=== PATIENT | male | born 1950 | race Caucasian/White ===

== ENCOUNTER 2020-06-01 09:01 | Observation (INO) | payer MEDICARE ==
[~2020-06-01] VITALS: Ht 175.3 cm; Wt 62.1 kg
[2020-06-01] MEDS ORDERED: LORazepam 2 MG/ML, 1ML ONE ×2 (09:24→11:02)
[2020-06-01] MEDS ORDERED: LORazepam 2 MG/ML, 1ML IVPush ONE ×2 (09:30→11:30)
[2020-06-01] MEDS ORDERED: SODIUM CHLORIDE FLUSH 10ML SYR IVF ONE (09:30)
--- NOTE | 2020-06-01 09:38 | NUR ---
PT BIBA FOR FIRST TIME SEIZURE THIS AM OCCURING WHILE PT WAS WALKING OUTSIDE [facility]. PT STATES HE HAS BEEN TRYING TO WEAN SELF OFF OF ETOH, USUAL AMOUNT IS 4 DRINKS PER DAY, CURRENTLY AT 2 DRINKS PER DAY, LAST DRINK YESTERDAY PM. PT DISORIENTED ON SCENE PER EMS, NOW A&OX4. FSBS 146 HAND LAMINATOR PER EMS. REPORT TAKEN ON ARRIVAL FROM EMS. EKG TAKEN ON ARRIVAL BY EDT. SEIZURE PADS IN PLACE, ALL MONITORS IN PLACE. PT DENIES HEADACHE, DENIES NECK PAIN, DENIES ANY PAIN. PT REPORTS HE ALSO HAS RECENTLY RAN OUT OF HIS ATIVAN PRESCRIPTION, HE HAS BEEN TAKING ATIVAN TID FOR YEARS, LAST DOSE WAS YESTERDAY AT 4AM. PT TAKES ELIQUIS FOR HISTORY PE, STATES HIS LAST DOSE WAS YESTERDAY PM. PT IS NEUROLOGICALLY INTACT, 4/5 STRENGTH TO ALL EXTREMITIES, PUPILS EQUAL, ROUND AND REACTIVE. MILD TREMOR NOTED WHEN ARMS ARE EXTENDED. FACE SYMMETRICAL, GRASP EQUAL BILATERALLY. PT INSTRUCTED TO PROVIDE URINE FOR DRUG SCREEN, PT VOIDED IN URINAL BUT SPILLED URINE ON SELF. PT INSTRUCTED TO CALL RN WHEN READY TO REATTEMPT. CALL LIGHT IN REACH. PT EXAMINED BY YASIR ROUSE, RANJIT OLIVEIRA AT BEDSIDE AT THIS TIME.
[2020-06-01 10:28] LABS: ALBUMIN 3.2 g/dL (3.4-5.0); ANION GAP 14 mmol/L (5-15); CHLORIDE 102 mmol/L (98-107)
[2020-06-01 10:32] LABS: ALANINE AMINOTRANSFERASE 197 U/L (12-78); ALKALINE PHOSPHATASE 84 U/L (45-117); BILIRUBIN,TOTAL 1.1 mg/dL (0.2-1.0); CREATININE 1.01 mg/dL (0.7-1.3); TOTAL PROTEIN 6.5 g/dL (6.4-8.2)
[2020-06-01 10:57] LABS: MEAN CORPUSCULAR HGB CONC 33.5 g/dL (33.2-36.2); MEAN CORPUSCULAR VOLUME 116.5 fL (81-97); MEAN PLATELET VOLUME 7.9 fL (7.4-10.4); PLATELET COUNT 159 x10^3/uL (130-400); RED BLOOD COUNT 3.24 x10^6/uL (4.38-5.82); RED CELL DISTRIBUTION WIDTH 14.7 % (9.4-14.8)
--- NOTE | 2020-06-01 11:09 | NUR ---
PT REMAINS TREMULOUS, A&OX4. SECOND DOSE ATIVAN ORDERED AND ADMIN. EDPA PADMA AT BEDSIDE TO REASSESS PT.
[2020-06-01 11:18] LABS: BASOPHILS # (AUTO) 0.01 x10^3/uL (0-0.1); BASOPHILS % (AUTO) 0 % (0-1); EOSINOPHILS # (AUTO) 0.01 x10^3/uL (0-0.4); EOSINOPHILS % (AUTO) 0 % (1-7); LYMPHOCYTES # (AUTO) 0.65 x10^3/uL (1-3.4); LYMPHOCYTES % (AUTO) 12 % (22-44); MD SCAN; MONOCYTES # (AUTO) 0.65 x10^3/uL (0.2-0.8); MONOCYTES % (AUTO) 12 % (2-9); NEUTROPHILS # (AUTO) 4.08 x10^3/uL (1.8-6.8); NEUTROPHILS % (AUTO) 76 % (42-75)
[2020-06-01] MEDS ORDERED: THIAMINE 100MG TABLET ONE (11:25)
[2020-06-01] MEDS ORDERED: THIAMINE 100MG TABLET PO ONE (11:30)
[2020-06-01 12:01] LABS: AMPHETAMINE SCREEN, URINE Negative (Negative); BARBITURATE SCREEN, URINE Negative (Negative); BENZODIAZEPINE SCREEN, URINE Negative (Negative); CANNABINOID SCREEN, URINE Negative (Negative); METHADONE SCREEN, URINE Negative (Negative); OPIATE SCREEN, URINE Negative (Negative)
[2020-06-01 12:04] LABS: COCAINE SCREEN, URINE Negative (Negative)
[2020-06-01] MEDS ORDERED: vitamin d PO (12:31)
[2020-06-01] MEDS ORDERED: VITA1TAB71 PO (12:31)
[2020-06-01] MEDS ORDERED: APIX5TAB PO (12:31)
[2020-06-01] MEDS ORDERED: metoprolol PO (12:31)
[2020-06-01] MEDS ORDERED: ASPI-496 PO (12:31)
[2020-06-01] MEDS ORDERED: LORA2TAB99 PO (12:31)
[2020-06-01] MEDS ORDERED: BENA5TAB3 PO (12:31)
--- NOTE | 2020-06-01 12:31 | NUR ---
pt is a&ox4, tremors improved. urine sample collected with RN assist, pt unable to stand independently d/t generalized weakness, YASIR Grant notified. pt to be admitted. pt updated with POC, agreeable to admit.
[2020-06-01] MEDS ORDERED: LORA-446 PO (12:34)
[2020-06-01] MEDS ORDERED: [UNRECOGNIZED DRUG - REMARK] PO (12:34)
--- NOTE | 2020-06-01 12:34 | NUR ---
med rec completed for admission with pt assistance. pt is a&o, resps even and unlabored, nsr on dietary cook with no ectopy noted. awaiting room assignment and transport.
[2020-06-01 13:03] LABS: MICROSCOPIC INDICATED
--- NOTE | 2020-06-01 13:56 | NUR ---
PT SLEEPING INTERMITTENTLY, RESPS EVEN AND UNLABORED. WHEN AWAKENED, PT A&OX4, NADN. NEURO INTACT. NSR ON CARDIAC MONTIOR WITH NO ECTOPY NOTED. NO TREMORS NOTED AT THIS TIME. ADMIT ORDER ENDERED, AWAITING ROOM ASSIGNMENT AND TRANSPORT.
--- NOTE | 2020-06-01 15:09 | NUR ---
REPORT CALLED TO RECEIVING BROOKE SARGENT. 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 PT AWAITING TRANSPORT TO [facility].
--- NOTE | 2020-06-01 15:15 | NUR ---
REPORT ALSO GIVEN TO ERICA MURPHY WHO WILL BE WATCHING PT UNTIL TRANSPORT TO [facility].
--- NOTE | 2020-06-01 15:21 | NUR ---
ASSUMED CARE OF PATIENT. PATIENT RESTING IN ROOM. SEIZURE PADS ON. PT INSTRUCTED HOW TO USE HIS CALL LIGHT. WILL CONTINUE TO MONITOR.
[2020-06-01] MEDS ORDERED: GABAPENTIN 300 MG CAPSULE PO PRN (15:30)
[2020-06-01] MEDS ORDERED: LABETALOL 5MG/ML, 20ML IVPush PRN (15:30)
[2020-06-01] MEDS ORDERED: ONDANSETRON ODT 4 MG PO PRN (15:30)
[2020-06-01] MEDS ORDERED: MELATONIN 5 MG TABLET PO PRN (15:30)
[2020-06-01] MEDS ORDERED: hydrALAzine 20 MG/ML, 1ML IVPush PRN (15:30)
[2020-06-01] MEDS ORDERED: ACETAMINOPHEN 325 MG TABLET PO PRN (15:30)
[2020-06-01] MEDS ORDERED: LORazepam 1MG TABLET PO PRN (15:30)
[2020-06-01] MEDS ORDERED: ONDANSETRON 2MG/ML, 2ML IVPush PRN (15:30)
[2020-06-01] MEDS ORDERED: GUAIFENESIN/DM 200-20MG, 10ML UDC PO PRN (15:30)
[2020-06-01] MEDS ORDERED: BACLOFEN 10 MG TABLET PO PRN (15:30)
[2020-06-01 16:12] VITALS: BP 153/93
[2020-06-01] MEDS: LORazepam 1MG TABLET PO SCH ×2 (16:15→20:25)
[2020-06-01 19:36] VITALS: BP 110/70
[2020-06-01] MEDS: APIXABAN 5 MG TABLET PO SCH (20:25)
[2020-06-02 00:45] VITALS: BP 155/85
[2020-06-02 06:23] LABS: CHLORIDE 102 mmol/L (98-107)
[2020-06-02 06:24] LABS: MEAN CORPUSCULAR HGB CONC 33.5 g/dL (33.2-36.2); MEAN CORPUSCULAR VOLUME 116.5 fL (81-97); MEAN PLATELET VOLUME 7.9 fL (7.4-10.4); PLATELET COUNT 154 x10^3/uL (130-400); RED CELL DISTRIBUTION WIDTH 14.5 % (9.4-14.8)
[2020-06-02 06:50] LABS: ALANINE AMINOTRANSFERASE 200 U/L (12-78); ALKALINE PHOSPHATASE 84 U/L (45-117); ANION GAP 9 mmol/L (5-15); BILIRUBIN,TOTAL 1.3 mg/dL (0.2-1.0); CREATININE 0.89 mg/dL (0.7-1.3); TOTAL PROTEIN 6.6 g/dL (6.4-8.2)
[2020-06-02 06:52] LABS: BASOPHILS # (AUTO) 0.01 x10^3/uL (0-0.1); BASOPHILS % (AUTO) 0 % (0-1); EOSINOPHILS # (AUTO) 0.06 x10^3/uL (0-0.4); EOSINOPHILS % (AUTO) 1 % (1-7); LYMPHOCYTES # (AUTO) 1.11 x10^3/uL (1-3.4); LYMPHOCYTES % (AUTO) 22 % (22-44); MD SCAN; MONOCYTES # (AUTO) 0.66 x10^3/uL (0.2-0.8); MONOCYTES % (AUTO) 13 % (2-9); NEUTROPHILS # (AUTO) 3.17 x10^3/uL (1.8-6.8); NEUTROPHILS % (AUTO) 63 % (42-75)
[2020-06-02 08:08] VITALS: BP 142/91
[2020-06-02] MEDS: LORazepam 1MG TABLET PO SCH (08:21)
[2020-06-02] MEDS: APIXABAN 5 MG TABLET PO SCH (08:21)
[2020-06-02] MEDS ORDERED: ASPIRIN 81 MG TABLET EC PO SCH (09:00)
[2020-06-02] MEDS ORDERED: SENNA/DOCUSATE TABLET PO SCH (09:00)
[2020-06-02] MEDS ORDERED: BENAZEPRIL 5 MG TABLET PO SCH (09:00)
[2020-06-02 13:04] VITALS: BP 117/78
== END 2020-06-02 13:57 | disposition home or self-care (01) ==
LOC: ED 10:42 → EDIP 13:51 → INTOOBSV 13:51 → 4WST 15:34 → DCLOUNGE 06-02 13:40
PROVIDERS: ADMIT Internal Medicine; ATTEND Family Medicine
DX: R56.9 Unspecified convulsions (principal); F10.239 Alcohol dependence with withdrawal, unspecified; F13.20 Sedative, hypnotic or anxiolytic dependence, uncomplicated; I10 Essential (primary) hypertension; I25.10 Atherosclerotic heart disease of native coronary artery without angina pectoris; F41.9 Anxiety disorder, unspecified; E78.5 Hyperlipidemia, unspecified; D68.69 Other thrombophilia; K70.10 Alcoholic hepatitis without ascites; R94.5 Abnormal results of liver function studies; I25.2 Old myocardial infarction; F17.200 Nicotine dependence, unspecified, uncomplicated; Z90.5 Acquired absence of kidney; Z85.528 Personal history of other malignant neoplasm of kidney; Z79.01 Long term (current) use of anticoagulants; Z79.82 Long term (current) use of aspirin; Z95.5 Presence of coronary angioplasty implant and graft; Z86.711 Personal history of pulmonary embolism; Z79.899 Other long term (current) drug therapy; Z86.79 Personal history of other diseases of the circulatory system
CPT/HCPCS: 36415; 70450; 80053; 80074; 80307; 81001; 83735; 85025; 87086; 93005; 96374; 96376; 99285; G0378; J2060

== ENCOUNTER 2020-06-22 21:29 | Emergency (ER) | payer MEDICARE ==
[~2020-06-22] VITALS: Ht 175.3 cm; Wt 62.0 kg
[~2020-06-22 21:29] MED LIST: APIX5TAB PO; ASPI-496 PO; BENA5TAB3 PO; LORA-446 PO; LORA2TAB99 PO; VITA1TAB71 PO; [UNRECOGNIZED DRUG - REMARK] PO; metoprolol PO; vitamin d PO
[2020-06-22 21:50] LABS: MEAN CORPUSCULAR HEMOGLOBIN 38.3 pg (27.5-34.5); MEAN CORPUSCULAR HGB CONC 33.4 g/dL (33.2-36.2); MEAN CORPUSCULAR VOLUME 114.7 fL (81-97); MEAN PLATELET VOLUME 7.5 fL (7.4-10.4); PLATELET COUNT 142 x10^3/uL (130-400); RED BLOOD COUNT 3.09 x10^6/uL (4.38-5.82); RED CELL DISTRIBUTION WIDTH 13.8 % (9.4-14.8)
--- NOTE | 2020-06-22 21:54 | NUR ---
BIBA. A&o x4. States he had first seizure x2 weeks after running out of ativan script. Admits to daily drinking of 1-2 rum bevarages. States he had 2 drinks tonight and began to feel dizzy/lightheaded, states, "I got really worried because of that seizure and I called 911." Denies sx upon arrival to ED. States he has been taking his ativan as prescribed. Neurologically in tact, see neuro assessment for details. PERRLA. Denies chest/abd pain. States baseline, unchanged [place]. Denies fever/chills. MD at bedside upon arrival
[2020-06-22 22:02] LABS: ALANINE AMINOTRANSFERASE 84 U/L (12-78); ALBUMIN 2.7 g/dL (3.4-5.0); ANION GAP 8 mmol/L (5-15); CHLORIDE 113 mmol/L (98-107); CREATININE 1.04 mg/dL (0.7-1.3)
[2020-06-22 22:04] LABS: ALKALINE PHOSPHATASE 91 U/L (45-117); BILIRUBIN,TOTAL 0.4 mg/dL (0.2-1.0); TOTAL PROTEIN 5.9 g/dL (6.4-8.2)
[2020-06-22 22:09] LABS: MD YES
[2020-06-22 22:13] LABS: BASOS#(MANUAL) 0.04 x10^3/uL (0-0.1); BASOS% (MANUAL) 1 % (0-1); EOS#(MANUAL) 0.12 x10^3/uL (0.0-0.4); EOS% (MANUAL) 3 % (1-7); LYMPH#(MANUAL) 2.05 x10^3/uL (1-3.4); LYMPHS% (MANUAL) 50 % (22-44); MONOS#(MANUAL) 0.49 x10^3/uL (0.3-2.7); MONOS% (MANUAL) 12 % (2-9); SEG#(MANUAL) 1.39 x10^3/uL (1.8-6.8); SEGS% (MANUAL) 34 % (42-75)
[2020-06-22 22:15] LABS: <PLATELET ESTIMATE> ADEQUATE; <PLT MORPHOLOGY> NORMAL PLT MORPH
--- NOTE | 2020-06-22 22:30 | NUR ---
Pt ambulating independently, steady gait. D/c instructions discussed with pt. Pt states he has not been taking BP meds as prescribed, but has meds on hand at home and will take as prescribed starting tomorrow. Pt also states he will f/u with PCP. States he is going to get Uber home
[2020-06-22 22:32] VITALS: BP 151/99
== END 2020-06-22 22:35 | disposition home or self-care (01) ==
LOC: ED 21:45
DX: F10.220 Alcohol dependence with intoxication, uncomplicated (principal); R56.9 Unspecified convulsions; R94.5 Abnormal results of liver function studies; R55 Syncope and collapse; R42 Dizziness and giddiness; R94.31 Abnormal electrocardiogram [ECG] [EKG]; Y90.9 Presence of alcohol in blood, level not specified
CPT/HCPCS: 36415; 80053; 80307; 85025; 93005; 99284